=== PATIENT | female | born 1945 | race Caucasian/White ===

== ENCOUNTER 2023-12-03 19:33 | Inpatient (IN) | payer OTHER, MEDICARE ==
[2023-12-03 20:09] VITALS: BMI 34.0
[2023-12-03 20:53] LABS: BASO % 0.1 % (0-2.0); HEMATOCRIT 42.3 % (32.4-45.2); HEMOGLOBIN 14.5 GM/dL (10.7-15.3); LYMPH % 4.7 % (8-40); MCH 28.2 pg (25.7-33.7); MCHC 34.3 g/dl (32.0-36.0); MEAN CELL VOLUME 82.1 fl (80-96); MONO % 9.1 % (3.8-10.2); NEUT % 86.1 % (42.8-82.8); PLATELET COUNT 217 10^3/uL (134-434); RBC 5.15 M/mm3 (3.60-5.2); RDW 14.9 % (11.6-15.6); WHITE BLOOD COUNT 9.3 K/mm3 (4.0-10.0)
[2023-12-03] MEDS ORDERED: ACETAMINOPHEN INJECTION 100 ML IVPB ONE (21:00)
[2023-12-03 21:06] LABS: INR 1.02 (0.83-1.09); PROTHROMBIN TIME (PATIENT) 11.7 SEC (9.7-13.0)
[2023-12-03] MEDS: ACETAMINOPHEN 1000 MG/100 ML BAG IVPB ONE (21:06)
[2023-12-03] MEDS: SODIUM CHLORIDE 0.9% 500 ML INFUS.BAG IV ONE (21:06)
[2023-12-03 21:08] LABS: ACTIVATED PTT 31.1 SECONDS (25.2-36.5)
[2023-12-03 21:27] LABS: POTASSIUM 3.6 mmol/L (3.5-5.1)
[2023-12-03 21:29] LABS: ALBUMIN 3.6 g/dl (3.4-5.0); BLOOD UREA NITROGEN 25.5 mg/dL (7-18); CALCIUM 9.3 mg/dL (8.5-10.1)
[2023-12-03 21:30] LABS: MAGNESIUM 2.3 mg/dL (1.8-2.4)
[2023-12-03 21:32] LABS: PHOSPHOROUS 3.8 mg/dL (2.5-4.9)
[2023-12-03 21:33] LABS: CREATININE 1.1 mg/dL (0.55-1.3)
[2023-12-03 21:34] LABS: BILIRUBIN,TOTAL 0.6 mg/dL (0.2-1); TOT PROT 7.6 g/dl (6.4-8.2)
[2023-12-03] MEDS ORDERED: ASPIRIN 81 MG CHEWABLE TABLETS ONE (22:41)
[2023-12-03] MEDS: ASPIRIN 81 MG CHEWABLE TABLETS PO ONE (22:48)
[2023-12-04] MEDS ORDERED: DOCUSATE SODIUM 100 MG CAPSULE (FP) PO PRN (01:06)
[2023-12-04] MEDS ORDERED: ACETAMINOPHEN 1000 MG/100 ML BAG IVPB PRN (06:00)
[2023-12-04] MEDS: SODIUM CHLORIDE 0.9% 500 ML INFUS.BAG IV ONE (06:01)
[2023-12-04] MEDS: DEXTROSE 5%-NORMAL SALINE 1,000 ML IV SCH (08:21)
[2023-12-04 11:44] LABS: BASO % 0.3 % (0-2.0); EOS % 0.1 % (0-4.5); HEMATOCRIT 36.6 % (32.4-45.2); HEMOGLOBIN 12.5 GM/dL (10.7-15.3); LYMPH % 18.1 % (8-40); MCH 28.5 pg (25.7-33.7); MCHC 34.2 g/dl (32.0-36.0); MEAN CELL VOLUME 83.3 fl (80-96); MONO % 8.9 % (3.8-10.2); NEUT % 72.6 % (42.8-82.8); PLATELET COUNT 175 10^3/uL (134-434); RBC 4.39 M/mm3 (3.60-5.2); RDW 14.9 % (11.6-15.6)
[2023-12-04 13:56] LABS: ALBUMIN 2.7 g/dl (3.4-5.0); BILIRUBIN,TOTAL 0.3 mg/dL (0.2-1); BLOOD UREA NITROGEN 15.7 mg/dL (7-18); CREATININE 0.7 mg/dL (0.55-1.3); POTASSIUM 3.2 mmol/L (3.5-5.1); TOT PROT 5.7 g/dl (6.4-8.2)
[2023-12-04] MEDS: POTASSIUM CHLORIDE TABS 20 MEQ TABLET.ER (FP) PO ONE (17:31)
[2023-12-04] MEDS: POTASSIUM CHLORIDE 10 MEQ in SODIUM CHLORIDE 0.45% 1,000 ML IVPB SCH (17:39)
[2023-12-04] MEDS: OSELTAMIVIR PHOSPHATE 75 MG CAPSULE PO SCH (21:38)
[2023-12-04] MEDS: DEXTROSE 5%-WATER - 1,000 ML IV SCH (23:23)
[2023-12-05] MEDS ORDERED: ACETAMINOPHEN 325 MG TABLET (FP) PO PRN (06:00)
[2023-12-05 07:46] LABS: BASO % 0.3 % (0-2.0); EOS % 0.2 % (0-4.5); HEMATOCRIT 36.9 % (32.4-45.2); HEMOGLOBIN 12.6 GM/dL (10.7-15.3); LYMPH % 26.3 % (8-40); MCH 28.2 pg (25.7-33.7); MEAN CELL VOLUME 82.8 fl (80-96); MEAN PLT VOLUME 8.1 fl (7.5-11.1); MONO % 8.3 % (3.8-10.2); NEUT % 64.9 % (42.8-82.8); PLATELET COUNT 175 10^3/uL (134-434); RBC 4.45 M/mm3 (3.60-5.2); RDW 15.2 % (11.6-15.6); WHITE BLOOD COUNT 4.3 K/mm3 (4.0-10.0)
[2023-12-05 08:04] LABS: POTASSIUM 3.7 mmol/L (3.5-5.1)
[2023-12-05 08:05] LABS: CALCIUM 7.6 mg/dL (8.5-10.1)
[2023-12-05 08:06] LABS: BLOOD UREA NITROGEN 9.6 mg/dL (7-18)
[2023-12-05 08:09] LABS: CREATININE 0.4 mg/dL (0.55-1.3); PHOSPHOROUS 1.8 mg/dL (2.5-4.9)
[2023-12-05] MEDS: METOPROLOL TARTRATE 25 MG TABLET (FP) PO SCH (10:45)
[2023-12-05] MEDS: ASPIRIN COATED 81 MG TABLET.EC PO SCH (10:47)
[2023-12-05] MEDS: ROSUVASTATIN CA 10 MG TABLET PO SCH (21:48)
[2023-12-06 09:35] LABS: CHOLESTEROL 222 mg/dL (50-200)
[2023-12-06 09:37] LABS: LDL CHOLESTEROL (ONLY SJRH) 150 mg/dL (5-100)
[2023-12-06 09:38] LABS: HDL CHOLESTEROL 52 mg/dL (40-60)
[2023-12-07] MEDS: POTASSIUM CHLORIDE 10 MEQ in SODIUM CHLORIDE 0.45% 1,000 ML IVPB SCH (17:32)
[2023-12-09 16:02] VITALS: BP 131/54; PULSE 76; RESP 18; TEMP 98.8
== END 2023-12-09 18:31 | DRG 558 ==
LOC: JER 19:33 → JERBED 12-04 01:05 → J4W 12-04 15:49
PROVIDERS: ADMIT Internal Medicine; ATTEND Family Medicine
DX: M62.82 Rhabdomyolysis (principal); G91.9 Hydrocephalus, unspecified; N13.30 Unspecified hydronephrosis; J10.1 Influenza due to other identified influenza virus with other respiratory manifestations; E78.5 Hyperlipidemia, unspecified; R29.6 Repeated falls; R79.89 Other specified abnormal findings of blood chemistry; R55 Syncope and collapse; E87.6 Hypokalemia; W18.30XA Fall on same level, unspecified, initial encounter; Y92.090 Kitchen in other non-institutional residence as the place of occurrence of the external cause; Y99.9 Unspecified external cause status
CPT/HCPCS: 0241U-QW; 36415; 70450-TC; 70553-TC; 71045-TC-FY; 72125-TC; 72131-TC; 72170-TC-FY; 76775-TC; 80048; 80053; 80061; 82550; 82553; 82962; 83735; 84100; 84484; 85025; 85610; 85730; 93005; 93010; 93306-TC; 97116-GP; 97162-GP; 99291; J0131